=== PATIENT | female | born 1990 | race Caucasian/White ===

== ENCOUNTER 2018-05-15 13:43 | Emergency (ER) | payer OTHER ==
[~2018-05-15 13:43] MED LIST: NORE0.3517 PO; SERT-173 PO
--- NOTE | 2018-05-15 14:42 | ER Report ---
History and Physical Time Seen By MD: 14:42 HPI/ROS CHIEF COMPLAINT: Vaginal bleeding HISTORY OF PRESENT ILLNESS: 27-year-old female patient presents to the emergency room with complaint of vaginal bleeding. Patient states that she is 9 weeks p regnant. She states that today she got up and felt fluid cannot. She locked and had blood. She states that she became concerned. She states that she wanted to come in and be evaluated. She states when she went to the bathroom just unsure if here she had more blood. She states she's had some discomfort as well as a little bit of cramping. She denies having any fevers, chills, nausea, vomiting or diarrhea. She states she did have some nausea yesterday, but nothing today. REVIEW OF SYSTEMS: Respiratory: No cough, no dyspnea. Cardiovascular: No chest pain, no palpitations. Gastrointestinal: No vomiting, no abdominal pain. Musculoskeletal: No back pain. Allergies: Coded Allergies: No Known Drug Allergies (Unverified , 06/29/11) Home Meds Reported Medications Norethindrone (Tiffanie) 0.35 Mg Tablet, 0.35 MG PO DAILY 06/29/11 Sertraline Hcl (Zoloft) 100 Mg Tablet, 200 MG PO QDAY 06/29/11 Past Medical/Surgical History Patient has a past medical history of substance abuse, alcohol abuse, depression, anxiety. Patient has no pertinent surgical history. Reviewed Nurses Notes: Yes Hx Smoking: Yes Hx Substance Use Disorder: Yes Hx Alcohol Use: Yes Constitutional Vital Sign - Last 24 Hours 05/15/18 05/15/18 05/15/18 05/15/18 14:41 15:26 16:30 17:00 Temp 98.3 Pulse 97 88 98 86 73 82 Resp 18 19 18 B/P (MAP) 122/79 113/75 (88) 117/95 (102) 119/76 (90) Pulse Ox 97 94 95 O2 Delivery Room Air 05/15/18 17:30 Pulse 96 Resp 22 Pulse Ox 95 Physical Exam General Appearance: The patient is alert, has no immediate need for airway protection and no current signs of toxicity. Respiratory: Chest is non tender, lungs are clear to auscultation. Cardiac: regular rate and rhythm Gastrointestinal: Abdomen is soft and non tender, no masses, bowel sounds normal. Musculoskeletal: Neck: Neck is supple and non tender. Extremities have full range of motion and are non tender. Skin: No rashes or lesions. DIFFERENTIAL DIAGNOSIS: After history and physical exam differential diagnosis was considered for vaginal bleeding including but not limited to ectopic , menses, miscarriage, and dysfunctional uterine bleeding. Medical Decision Making Data Points Result Diagram: 05/15/18 1456 05/15/18 1456 Laboratory Hematology Test 05/15/18 14:42 05/15/18 14:56 Urine Color Straw Urine Clarity Clear Urine pH 7.0 pH (4.8-9.5) Urine Specific [place] 1.004 Urine Protein Negative mg/dL (NEGATIVE) Urine Glucose (UA) Negative mg/dL (NEGATIVE) Urine Ketones Negative mg/dL (NEGATIVE) Urine Blood Large (NEGATIVE) Urine Nitrite Negative (NEGATIVE) Urine Bilirubin Negative (NEGATIVE) Urine Urobilinogen Negative mg/dL (0.2-1.9) Urine Leukocyte Esterase Negative (NEGATIVE) Urine RBC 3 /HPF (0-2/HPF) Urine WBC 2 /HPF (0-5/HPF) Urine Squamous Epithelial Cells Few /LPF (</=FEW) Urine Bacteria Negative /HPF (NONE-FEW) Urine Mucus None /HPF (NONE-FEW) Red Blood Count 4.81 M/uL (4.17-5.56) Mean Corpuscular Volume 91.9 fL (80.0-96.0) Mean Corpuscular Hemoglobin 31.3 pg (26.0-33.0) Mean Corpuscular Hemoglobin Concent 34.0 g/dL (32.0-36.0) Red Cell Distribution Width 12.5 % (11.5-14.5) Mean Platelet Volume 7.6 fL (7.2-11.1) Neutrophils (%) (Auto) 76.9 % (39.4-72.5) Lymphocytes (%) (Auto) 15.6 % (17.6-49.6) Monocytes (%) (Auto) 6.1 % (4.1-12.4) Eosinophils (%) (Auto) 0.7 % (0.4-6.7) Basophils (%) (Auto) 0.7 % (0.3-1.4) Nucleated RBC Relative Count (auto) 0.0 /100WBC Neutrophils # (Auto) 8.4 K/uL (2.0-7.4) Lymphocytes # (Auto) 1.7 K/uL (1.3-3.6) Monocytes # (Auto) 0.7 K/uL (0.3-1.0) Eosinophils # (Auto) 0.1 K/uL (0.0-0.5) Basophils # (Auto) 0.1 K/uL (0.0-0.1) Nucleated RBC Absolute Count (auto) 0.00 K/uL Prothrombin Time 13.5 seconds (12.0-14.4) Prothromb Time International Ratio 1.03 Activated Partial Thromboplast Time 31 seconds (23-35) Sodium Level 139 mmol/L (137-145) Potassium Level 3.5 mmol/L (3.5-5.0) Chloride Level 105 mmol/L (98-107) Carbon Dioxide Level 22 mmol/L (22-31) Blood Urea Nitrogen 10 mg/dl (7-18) Creatinine 0.60 mg/dl (0.52-1.04) Glomerular Filtration Rate Calc > 60.0 Random Glucose 87 mg/dl (75-110) Calcium Level 9.6 mg/dl (8.4-10.2) Total Bilirubin 0.5 mg/dl (0.2-1.3) Aspartate Amino Transf (AST/SGOT) 24 U/L (0-35) Alanine Aminotransferase (ALT/SGPT) 34 U/L (0-56) Alkaline Phosphatase 57 U/L (0-126) Total Protein 7.5 g/dl (6.3-8.2) Albumin 4.5 g/dl (3.5-5.0) Human Chorionic Gonadotropin, Quant [id number] mIU/ml Chemistry Test 05/15/18 14:42 05/15/18 14:56 Urine Color Straw Urine Clarity Clear Urine pH 7.0 pH (4.8-9.5) Urine Specific [place] 1.004 Urine Protein Negative mg/dL (NEGATIVE) Urine Glucose (UA) Negative mg/dL (NEGATIVE) Urine Ketones Negative mg/dL (NEGATIVE) Urine Blood Large (NEGATIVE) Urine Nitrite Negative (NEGATIVE) Urine Bilirubin Negative (NEGATIVE) Urine Urobilinogen Negative mg/dL (0.2-1.9) Urine Leukocyte Esterase Negative (NEGATIVE) Urine RBC 3 /HPF (0-2/HPF) Urine WBC 2 /HPF (0-5/HPF) Urine Squamous Epithelial Cells Few /LPF (</=FEW) Urine Bacteria Negative /HPF (NONE-FEW) Urine Mucus None /HPF (NONE-FEW) White Blood Count 10.9 k/uL (4.5-11.0) Red Blood Count 4.81 M/uL (4.17-5.56) Hemoglobin 15.1 g/dL (12.0-16.0) Hematocrit 44.2 % (34.0-47.0) Mean Corpuscular Volume 91.9 fL (80.0-96.0) Mean Corpuscular Hemoglobin 31.3 pg (26.0-33.0) Mean Corpuscular Hemoglobin Concent 34.0 g/dL (32.0-36.0) Red Cell Distribution Width 12.5 % (11.5-14.5) Platelet Count 244 K/uL (150-450) Mean Platelet Volume 7.6 fL (7.2-11.1) Neutrophils (%) (Auto) 76.9 % (39.4-72.5) Lymphocytes (%) (Auto) 15.6 % (17.6-49.6) Monocytes (%) (Auto) 6.1 % (4.1-12.4) Eosinophils (%) (Auto) 0.7 % (0.4-6.7) Basophils (%) (Auto) 0.7 % (0.3-1.4) Nucleated RBC Relative Count (auto) 0.0 /100WBC Neutrophils # (Auto) 8.4 K/uL (2.0-7.4) Lymphocytes # (Auto) 1.7 K/uL (1.3-3.6) Monocytes # (Auto) 0.7 K/uL (0.3-1.0) Eosinophils # (Auto) 0.1 K/uL (0.0-0.5) Basophils # (Auto) 0.1 K/uL (0.0-0.1) Nucleated RBC Absolute Count (auto) 0.00 K/uL Prothrombin Time 13.5 seconds (12.0-14.4) Prothromb Time International Ratio 1.03 Activated Partial Thromboplast Time 31 seconds (23-35) Glomerular Filtration Rate Calc > 60.0 Calcium Level 9.6 mg/dl (8.4-10.2) Total Bilirubin 0.5 mg/dl (0.2-1.3) Aspartate Amino Transf (AST/SGOT) 24 U/L (0-35) Alanine Aminotransferase (ALT/SGPT) 34 U/L (0-56) Alkaline Phosphatase 57 U/L (0-126) Total Protein 7.5 g/dl (6.3-8.2) Albumin 4.5 g/dl (3.5-5.0) Human Chorionic Gonadotropin, Quant [id number] mIU/ml Coagulation Test 05/15/18 14:56 Prothrombin Time 13.5 seconds Prothromb Time International Ratio 1.03 Activated Partial Thromboplast Time 31 seconds Urinalysis Test 05/15/18 14:42 Urine Color Straw Urine Clarity Clear Urine pH 7.0 pH (4.8-9.5) Urine Specific [place] 1.004 Urine Protein Negative mg/dL (NEGATIVE) Urine Glucose (UA) Negative mg/dL (NEGATIVE) Urine Ketones Negative mg/dL (NEGATIVE) Urine Blood Large (NEGATIVE) Urine Nitrite Negative (NEGATIVE) Urine Bilirubin Negative (NEGATIVE) Urine Urobilinogen Negative mg/dL (0.2-1.9) Urine Leukocyte Esterase Negative (NEGATIVE) Urine RBC 3 /HPF (0-2/HPF) Urine WBC 2 /HPF (0-5/HPF) Urine Squamous Epithelial Cells Few /LPF (</=FEW) Urine Bacteria Negative /HPF (NONE-FEW) Urine Mucus None /HPF (NONE-FEW) EKG/Imaging Imaging OB Ultrasound < 14 weeks Additional Pertinent history: Vaginal bleeding. Early . COMPARISON STUDIES: None available FINDINGS: Gestational sac: intrauterine and unremarkable Yolk sac: Visualized pole: Visualized cardiac activity: 169 bpm Estimated gestational age: Eight weeks and six days based on average [place]-rump length of 2.2 cm. SANJAY: 12/19/2018 by ultrasound and 12/11/2018 clinically. Subchorionic hemorrhage: There is a prominent subchorionic hemorrhage present lateral to the gestational sac measuring 4.3 x 2.6 x 2.8 cm. Uterus: The uterus appears to be bicornuate with the in the right side. No other focal abnormality. Maternal ovaries: Both ovaries are normal with normal blood flow. Left ovary does show corpus luteum cyst. Adnexa: No adnexal mass lesion or focal abnormality. Free pelvic fluid: none IMPRESSION: 1. Single live early intrauterine gestation with dates and measurements as above 2. The uterus appears to be bicornuate with the on the right side. 3. Prominent subchorionic hemorrhage. Report Dictated By: Dalton Gibbons at 05/15/2018 5:10 PM Report E-Signed By: Dalton Gibbons at 05/15/2018 5:16 PM ED Course/Re-evaluation ED Course Patient was admitted in exam room, history and physical were obtained. Differential diagnoses were considered. On examination lungs are clear, heart is regular, abdomen soft nontender. Ultrasound was done, CBC, CMP, hCG, PT, PTT. Lab results were unremarkable. Ultrasound did show a 8 week 6 day old live intrauterine . Heart rate is 166. Patient did have a subchorionic hemorrhage and patient also was found to have a bicornuate uterus. I discussed findings with the patient and her significant other. I did call and discuss the case with Dr. Beatty, we will have her follow-up next week. At this point time is understood that there is not much that can be done for bleeding. On ultrasound there was not found to be any active bleeding. We will go ahead and discharge patient home. She is to increase her fluid intake, complaining of rest, return to emergency room if condition worsens. The patient and her significant other verbalized understanding and agreement with plan. Decision to Disposition Date: May 15, 2018 Decision to Disposition Time: 17:52 Depart Departure Latest Vital Signs Vital Signs Date Time Temp Pulse Resp B/P (MAP) Pulse Ox O2 Delivery O2 Flow Rate FiO2 05/15/18 17:30 96 22 95 05/15/18 15:26 113/75 (88) 117/95 (102) 119/76 (90) 05/15/18 14:41 98.3 Room Air Impression: Primary Impression: Subchorionic hemorrhage Condition: Improved Disposition: HOME OR SELF-CARE Patient Instructions: First Trimester Vaginal Bleed (ED) Additional Instructions: Increase fluid intake. Get plenty of rest. Pelvic rest for the next 2 weeks. Return to the ER if condition worsens. Limit activity by pain. Follow up with Dr. Beatty in the next week. Problem Qualifiers Primary Impression: Subchorionic hemorrhage Fetus number: single or unspecified fetus Trimester: first trimester Qualified Codes: O41.8X10 - Other specified disorders of amniotic fluid and membranes, first trimester, not applicable or unspecified; O46.8X1 - Other antepartum hemorrhage, first trimester KAL GANT May 15, 2018 14:42
[2018-05-15] MEDS ORDERED: NS(*) 0.9% 1000 ML BAG 1,000 ML IV ONE (14:48)
[2018-05-15 15:11] LABS: PLATELET COUNT, AUTOMATED 244 K/uL (150-450)
[2018-05-15 15:12] LABS: INR 1.03
[2018-05-15 15:26] VITALS: BP 119/76
--- NOTE | 2018-05-15 17:20 | RADIOLOGY IMAGING REPORT ---
FACILITY: [facility] PATIENT NAME: Josefa Broussard : 1990 MR: [id number] V: [id number] EXAM DATE: ORDERING PHYSICIAN: KAL GANT TECHNOLOGIST: Location: [facility] Patient: Josefa Broussard : 1990 Visit/Account:[id number] Date of Sevice: 05/15/2018 OB Ultrasound < 14 weeks Additional Pertinent history: Vaginal bleeding. Early . COMPARISON STUDIES: None available FINDINGS: Gestational sac: intrauterine and unremarkable Yolk sac: Visualized pole: Visualized cardiac activity: 169 bpm Estimated gestational age: Eight weeks and six days based on average [place]-rump length of 2.2 cm. SANJAY: 12/19/2018 by ultrasound and 12/11/2018 clinically. Subchorionic hemorrhage: There is a prominent subchorionic hemorrhage present lateral to the gestatio nal sac measuring 4.3 x 2.6 x 2.8 cm. Uterus: The uterus appears to be bicornuate with the in the right side. No other focal abn ormality. Maternal ovaries: Both ovaries are normal with normal blood flow. Left ovary does show corpus luteum cyst. Adnexa: No adnexal mass lesion or focal abnormality. Free pelvic fluid: none IMPRESSION: 1. Single live early intrauterine gestation with dates and measurements as above 2. The uterus appears to be bicornuate with the on the right side. 3. Prominent subchorionic hemorrhage. Report Dictated By: Dalton Gibbons at 05/15/2018 5:10 PM Report E-Signed By: Dalton Gibbons at 05/15/2018 5:16 PM WSN:[id number]
== END 2018-05-15 18:07 | disposition home or self-care (01) ==
LOC: ER 14:51
DX: O41.8X10 Other specified disorders of amniotic fluid and membranes, first trimester, not applicable or unspecified (principal); O46.8X1 Other antepartum hemorrhage, first trimester; Z3A.08 8 weeks gestation of pregnancy
CPT/HCPCS: 76817; 81001; 84702; 85025; 85610; 85730; 96360; 99284; J7030; 82040; 82247; 82310; 82374; 82435; 82565; 82947; 84075; 84132; 84155; 84295; 84450; 84460; 84520